=== PATIENT | male | born 1980 | race African-American/Black ===

== ENCOUNTER 2023-10-04 12:31 | Emergency (ER) | payer OTHER ==
[~2023-10-04] VITALS: Ht 172.7 cm; Wt 89.4 kg
[2023-10-04 13:00] LABS: EOSINOPHILS 0.6 % (0-6); HEMATOCRIT 45.3 % (35.0-50.0)
[2023-10-04 13:03] LABS: BASOPHILS 0.8 % (0-2); HEMOGLOBIN 14.6 g/dL (12.0-18.0); LYMPHOCYTES 10.4 % (24-44); MCHC 32.2 g/dl (30-36); NEUTROPHILS 84.2 % (39-80); PLATELET COUNT 271 K/uL (140-440); RBC 5.03 M/ul (4.3-5.7)
[2023-10-04 13:25] LABS: ACETAMINOPHEN 0 ug/mL (10-30); ALBUMIN 3.9 g/dL (3.4-5.0); ALBUMIN/GLOBULIN RATIO 1.15 (1.1-2.4); ALCOHOL, MEDICAL <3 ng/dL (<3); ALKALINE PHOSPHATASE 93 U/L (46-116); ALT (SGPT) 18 U/L (14-59); ANION GAP 13.8 (7-21); AST (SGOT) 17 U/L (15-37); BILIRUBIN, TOTAL 0.6 ng/dL (0.2-1.0); BUN/CREATININE RATIO 12.33 (6.0-28.6); CALCIUM 9.1 mg/dL (8.5-10.1); CARBON DIOXIDE 27 mmol/L (21-32); CHLORIDE 104 mmol/L (98-107); CREATININE, SERUM 1.54 mg/dL (0.70-1.30); GLOMERULAR FILTRATION RATE,EST 56 mL/min (>60); POTASSIUM 3.8 mmol/L (3.5-5.1); PROTEIN, TOTAL 7.3 g/dL (6.4-8.2); SALICYLATE 4.4 mg/dL (2.8-20.0); TSH, 3RD GENERATION 0.951 uIU/mL (0.358-3.740); UREA NITROGEN 19 mg/dL (7-18)
[2023-10-04 13:45] VITALS: BP 146/111
[2023-11-05] MEDS ORDERED: NEURONTIN100 MG PO (06:54)
== END 2023-10-04 13:45 | disposition home or self-care (01) ==
LOC: ED 12:31
PROVIDERS: Emergency Medicine
DX: Z00.8 Encounter for other general examination (principal)
CPT/HCPCS: 36415; 80053; 80307; 84443; 85025; 99285; G0480

== ENCOUNTER 2024-05-14 13:20 | Observation (INO) | payer OTHER ==
[~2024-05-14] VITALS: Ht 172.7 cm; Wt 88.0 kg
[~2024-05-14 13:20] MED LIST: NEURONTIN100 MG PO
--- OUTSIDE RECORDS SUMMARY | 2024-05-14 13:28 | XMS ---
PreManage Notification: ONUR KAPLAN Security Physician Support Coordinator Events No recent Security Events currently on file CRITERIA MET - [facility] - 2 Visits in 30 Days CARE PROVIDERS MAHIN WILHELM Physician Recreation Program Coordinator Current PHONE: [phone] [facility] Current PHONE: Unknown [facility]/Center: [facility] Qualified [facility] Current WORKERS CLINIC [facility] ([facility]) <UNAVAIL> PHONE: [phone] Ernie has no Care Guidelines for this patient. E.D. VISIT COUNT (12 [address] 6 [facility] [address] [facility] TOTAL 9 NOTE: Visits indicate total known visits. ED/UCC VISIT TRACKING (12 MO.) 05/14/2024 13:21 [facility] [place] [facility] [place] TYPE: Emergency COMPLAINT: - SWALLOWED FOREIGN OBJECT 04/24/2024 05:01 [facility] [place] TYPE: Emergency DIAGNOSES: - Other psychoactive substance abuse, uncomplicated - Suicidal ideations - mental health eval 04/22/2024 21:[address] [facility] [place] TYPE: Emergency DIAGNOSES: - Other psychoactive substance abuse, uncomplicated - Suicidal ideations - MENTAL HEALTH EVAL 04/13/2024 19:58 [facility] [place] TYPE: Emergency DIAGNOSES: - Calculus in bladder - URINATING BLOOD 03/05/2024 01:40 [facility] [place] TYPE: Emergency DIAGNOSES: - Calculus of ureter - kidney stones 11/05/2023 05:56 [facility] [place] TYPE: Emergency COMPLAINT: - NUMBNESS DIAGNOSES: - Anesthesia of skin - Carpal tunnel syndrome, bilateral upper limbs 10/04/2023 16:17 [facility] [place] TYPE: Emergency DIAGNOSES: - Suicidal ideations - CCS 10/04/2023 12:31 [facility] [place] TYPE: Emergency COMPLAINT: - MEDICAL CLEARANCE DIAGNOSES: - Encounter for other general examination - Suicidal ideations 06/22/2023 05:17 [facility] [place] TYPE: Emergency DIAGNOSES: - Contusion of left shoulder, initial encounter - Pain in left shoulder - Pain in right shoulder - BILATERAL SHOULDER PAIN INPATIENT VISIT TRACKING (12 MO.) No inpatient visits to display in this time frame [email or web address]
[2024-05-14] MEDS ORDERED: SUCCINYLCHOLINE IN 0.9% NACL 200 MG/10 ML SYRINGE ONE (14:53)
[2024-05-14] MEDS ORDERED: ETOMIDATE 40 MG/20 ML VIAL ONE (14:57)
[2024-05-14] MEDS ORDERED: SEVOFLURANE 250 ML BTL ONE (14:58)
[2024-05-14] MEDS ORDERED: METOPROLOL TARTRATE 5 MG/5 ML VIAL ONE (15:17)
[2024-05-14] MEDS ORDERED: LACTATED RINGER'S 1,000 ML IV ONE (15:19)
--- NOTE | 2024-05-14 15:41 | NUR ---
05/14/24 1541 Sheets,Maritza 1534 PT ARRIVED TO PACU ON 8L VIA MASK, ORAL AIRWAY IN PLACE AND RESP EVEN AND UNLABORED. PT NONAROUSABLE TO TACTILE STIMULI.
[2024-05-14] MEDS ORDERED: droPERidol 5 MG/2 ML VIAL IV PRN (15:45)
[2024-05-14] MEDS ORDERED: ondansetron HCL 4 MG/2 ML VIAL IV PRN (15:45)
[2024-05-14] MEDS ORDERED: METOCLOPRAMIDE HCL 10 MG/2 ML SDV IV PRN (15:45)
[2024-05-14] MEDS ORDERED: MEPERIDINE HCL 25 MG/1 ML VIAL IV PRN (15:45)
[2024-05-14] MEDS ORDERED: LORazepam 2 MG/ML VIAL IV PRN (15:45)
[2024-05-14] MEDS ORDERED: PROCHLORPERAZINE EDISYLATE 10 MG/2 ML VIAL IV PRN (15:45)
[2024-05-14] MEDS ORDERED: MIDAZOLAM HCL 2 MG/2 ML VIAL IV PRN (15:45)
[2024-05-14] MEDS ORDERED: diphenhydrAMINE HCL 50 MG/ML VIAL IV PRN (15:45)
[2024-05-14] MEDS ORDERED: KETOROLAC TROMETHAMINE 30 MG/ML VIAL IV PRN (15:45)
[2024-05-14] MEDS ORDERED: IBLOOD GLUCOSE TEST STRIP 1 EA TEST VI PRN (15:45)
[2024-05-14] MEDS ORDERED: NALOXONE HCL 0.4 MG SYR IV PRN (15:45)
[2024-05-14] MEDS ORDERED: MORPHINE SULFATE 10 MG/ML VIAL IV PRN (15:45)
[2024-05-14] MEDS ORDERED: fentaNYL citrate 50 MCG/ML SDV IV PRN (15:45)
[2024-05-14 16:06] VITALS: BP 149/94
[2024-05-14] MEDS ORDERED: ondansetron HCL 4 MG/2 ML VIAL ONE (16:09)
[2024-05-14] MEDS ORDERED: KETOROLAC TROMETHAMINE 30 MG/ML VIAL ONE (16:09)
[2024-05-14] MEDS ORDERED: DEXAMETHASONE SOD PHOS 4 MG/ML VIAL ONE (16:09)
--- NOTE | 2024-05-14 16:14 | NUR ---
PT TO ROOM 3 FROM PACU. RECEIVED REPORT FROM JUAN HEMPHILL. PT IS DROWSY. OPENS EYES AND ANSWERES QUESTIONS. DENIES PAIN. PROVIDED PT WITH JUICE AND JELLO. NO OTHER NEEDS AT THIS TIME. OFFICER AT BEDSIDE. CALL LIGHT WITHIN REACH.
[2024-05-14 16:53] VITALS: BP 143/98
--- NOTE | 2024-05-14 16:53 | NUR ---
BRITTANIE 165-PT LAYING IN BED WITH EYES CLOSED. PT OPENS EYES AND ANSWERES QUESTIONS. RESP EVEN AND UNLABORED. PT STATES "HAVING CHEST PAIN SINCE I WOKE UP", STATES "CAN'T GET A FULL BREATH". PT STATES "I WANT TO LEAVE" ADVISED PT WITH THESE SYMPTOMS SHOULD BE SEEN IN THE ER. PT STARTS TO GET TEARY. PT THEN STATES HE WOULD LIKE TO GO TO THE ER. BRITTANIE 170-PHONE CALL TO PASTEURIZER HELPER WITH UPDATED INFORMATION ON PT. PT WILL GO TO ER ROOM 4. BRITTANIE 170-THIS RN TRANSFERED PT ON STRETCHER TO ER ROOM 4. [place] SUPEREVISOR IN ROOM WHEN PT ARRIVED TO RESUME CARE.
--- NOTE | 2024-05-15 10:33 | OR ---
[facility] [address] [place], [place] [address] Signed DATE OF OPERATION: 05/14/2024 SURGEON: Rajendra Cotto MD PREOPERATIVE DIAGNOSIS: Ingested foreign body (AAA size cell phone battery in the stomach). POSTOPERATIVE DIAGNOSIS: Ingested foreign body (AAA size cell phone battery in the stomach). PROCEDURE: Removal of gastric foreign body with endoscopic snare tattoo technique. ANESTHESIA: General endotracheal; Rajendra Thompson CRNA. INDICATION: This 44-year-old black man is in the custody of [facility]. He ingested a battery at approximately 11:00 a.m. today. The battery was absconded from a portable phone in the halfway. He presented to the emergency room with some complaints of epigastric pain. An abdominal x-ray shows a battery probably between AAA and AA battery size. He is admitted at this time to undergo extraction of the foreign body given it is a battery and has potential for erosion, ulceration, and other complications. He understands the risk of bleeding, infection, and perforation related to upper endoscopy and foreign body removal and wished to proceed. FINDINGS: Indeed the battery was in the antrum of the stomach. It was rather slippery, but ultimately was grasped and extracted with a snare device causing no injury to surrounding tissue. The examined mucosa of the stomach did show some erosive changes likely related to the galvanic ability of the battery in an electrolyte rich environment. Followup upper endoscopy showed no sign of injury related to extraction of the foreign body. DESCRIPTION OF PROCEDURE: The patient was brought to the endoscopy suite, given a general endotracheal anesthetic. A bite block was placed. An Olympus video upper endoscope was passed in the hypopharynx and into the proximal esophagus. The esophagus itself appeared normal. There was no sign of distal stricture. The stomach was insufflated with air. Rugal Electronically Signed By: RAJENDRA COTTO MD 05/15/24 1033 PATIENT NAME: ONUR KAPLAN OPERATIVE REPORT DATE OF : 76 REPORT #: [id number] PHYSICIAN: RAJENDRA COTTO MD PCP: NO PRIMARY CARE PHYSICIAN REPORT IS CONFIDENTIAL AND NOT TO BE RELEASED WITHOUT AUTHORIZATION [facility] [address] [place], [place] [address] Signed folds were normal. The mucoid material from his meal at approximately 11 was noted. With various manipulations, the battery could be identified. It was manipulated into position and a snare used to grasp the end of it far enough from the end that it would not slip, but not so far that it would be hard to extract. Once snared, it was gently withdrawn through the GE junction, ultimately out of the mouth. Photograph was taken. The scope was reintroduced. Examination throughout showed no sign of injury related to extraction, but did confirm erosive changes of the stomach, likely related to the battery itself. The scope was removed and the patient was taken to the recovery room in good condition. CONCLUDING DIAGNOSIS: Successful extraction of foreign body of stomach (battery the size of AA battery). PLAN: Avoidance of ingestion of foreign bodies would be paramount of course. He is free to eat regular food at this point. MD ROSA Artis/TAZ /[id number] cc: [facility] Abdifatah Haley MD Copies: ABDIFATAH HALEY MD ~ Electronically Signed By: RAJENDRA COTTO MD 05/15/24 1033 PATIENT NAME: ONUR KAPLAN OPERATIVE REPORT DATE OF : 76 REPORT #: [id number] PHYSICIAN: RAJENDRA COTTO MD PCP: NO PRIMARY CARE PHYSICIAN REPORT IS CONFIDENTIAL AND NOT TO BE RELEASED WITHOUT AUTHORIZATION
--- NOTE | 2024-05-15 10:33 | HP ---
[facility] [address] [place], [place] [address] Signed ADMISSION DATE: 05/14/2024 EMERGENCY ROOM CONSULTATION ADMISSION NOTE PREOPERATIVE DIAGNOSIS: Ingested foreign body (stomach) AA battery. HISTORY OF PRESENT ILLNESS: This 44-year-old black man is in the custody of the [facility]'s Department and is manacled and secured. Approximately 11:00 a.m. today, he swallowed a single battery. He additionally had a small amount of food during the course of his meal at that time. He was taken to the emergency room, where he was evaluated thoroughly by Dr. Haley. A plain abdominal x-ray shows a battery in the midportion of the stomach. The battery is thought to be "live." He does have some epigastric pain he says. He denies any prior ingestion of foreign body and denies any ongoing medical problems, specifically no peptic ulceration or other issues. He does say that he has undergone upper endoscopy in the past in the [facility]. SOCIAL HISTORY: He is incarcerated for reasons that are uncertain and under the custody of the [facility]. REVIEW OF SYSTEMS: He denies any shortness of breath or chest pain. He is having no dysphagia or hematemesis. He has epigastric pain to some degree. PHYSICAL EXAMINATION: GENERAL: This is a vigorously healthy appearing black man, who does not appear to be in distress. He is secured with leg irons and handcuffs. HEENT: Trachea is midline. CHEST: Normal respiratory excursion. HEART: Pulses regular. ABDOMEN: Nondistended, but soft. There is no focal tenderness. EXTREMITIES: No clubbing, cyanosis, or edema. ASSESSMENT: The patient has ingested a battery. It is still in the stomach and he does have symptoms from it. Although, there may be adequates of watchful waiting and serial examinations including KUB and so forth under the circumstances of extraction under direct visualization with endoscopy would be the safest approach. The Galvanic response Electronically Signed By: RAJENDRA COTTO MD 05/15/24 1033 PATIENT NAME: ONUR KAPLAN HISTORY AND PHYSICAL DATE OF : 76 REPORT #: [id number] PHYSICIAN: RAJENDRA COTTO MD PCP: NO PRIMARY CARE PHYSICIAN REPORT IS CONFIDENTIAL AND NOT TO BE RELEASED WITHOUT AUTHORIZATION [facility] [address] [place], [place] [address] Signed from the battery in the face of gastric acid can lead to erosions and worse including perforation. I have reviewed with the patient the risk of upper endoscopy including, but not limited to bleeding, infection, and perforation. He understands and wished to proceed. We will plan to do this promptly. MD ROSA Artis/TAZ /[id number] cc: Abdifatah Haley MD Medical Personnel, [facility] Copies: ABDIFATAH HALEY MD ~ Electronically Signed By: RAJENDRA COTTO MD 05/15/24 1033 PATIENT NAME: ONUR KAPLAN HISTORY AND PHYSICAL DATE OF : 76 REPORT #: [id number] PHYSICIAN: RAJENDRA COTTO MD PCP: NO PRIMARY CARE PHYSICIAN REPORT IS CONFIDENTIAL AND NOT TO BE RELEASED WITHOUT AUTHORIZATION
== END 2024-05-14 17:00 | disposition still patient (30) ==
LOC: ED 13:20 → MS 15:11
PROVIDERS: ADMIT Surgery; ATTEND Surgery
PROC: 0DC68ZZ Extirpation of Matter from Stomach, Via Natural or Artificial Opening Endoscopic (ICD-10-PCS; principal; 2024-05-14 14:46)
DX: T18.2XXA Foreign body in stomach, initial encounter (principal); W44.A9XA Other batteries entering into or through a natural orifice, initial encounter; K31.89 Other diseases of stomach and duodenum
CPT/HCPCS: 00731; 74018; 99284; G0378; J0330; J1100; J1885; J2405; J7121

== ENCOUNTER 2024-05-14 17:04 | Emergency (ER) | payer OTHER ==
--- NOTE | ~2024-05-14 | EKG ---
[facility] [address] [place], [place] [address] Draft EK completed, results pending confirmation PATIENT NAME: ONUR KAPLAN DANNY Electrocardiogram DATE OF : 76 PHYSICIAN: PRELIMINARY REPORT #: [id number] REPORT IS CONFIDENTIAL AND NOT TO BE RELEASED WITHOUT AUTHORIZATION
--- OUTSIDE RECORDS SUMMARY | 2024-05-14 17:11 | XMS ---
PreManage Notification: ONUR KAPLAN Security Resolution Manager Events No recent Security Events currently on file CRITERIA MET - 6 ED Visits in 6 Months - [facility] - 2 Visits in 30 Days CARE PROVIDERS MAHIN WILHELM Physician Personal Lines Sales Executive Current PHONE: [phone] ABBEY [facility] Current PHONE: Unknown [facility]/Center: [facility] Current WORKERS CLINIC \[facility] ([facility]) <UNAVAIL> PHONE: [phone] Ernie has no Care Guidelines for this patient. E.D. VISIT COUNT (12 MO.) 6 [facility] 4 [facility] [place] Viviane TOTAL 10 NOTE: Visits indicate total known visits. ED/UCC VISIT TRACKING (12 MO.) 05/14/2024 17:05 [facility] [place] TYPE: Emergency COMPLAINT: - CHEST PAIN 05/14/2024 13:21 [facility] [place] TYPE: Emergency COMPLAINT: - SWALLOWED FOREIGN OBJECT 04/24/2024 05:01 [facility] [facility] [place] TYPE: Emergency DIAGNOSES: - Other psychoactive substance abuse, uncomplicated - Suicidal ideations - mental health eval 04/22/2024 21:18 [facility] [place] TYPE: Emergency DIAGNOSES: - Other psychoactive substance abuse, uncomplicated - Suicidal ideations - MENTAL HEALTH EVAL 04/13/2024 19:58 [facility] [place] TYPE: Emergency DIAGNOSES: - Calculus in bladder - URINATING BLOOD 03/05/2024 01:40 [facility] [place] TYPE: Emergency DIAGNOSES: - Calculus of ureter - kidney stones 11/05/2023 05:56 [facility] [place] TYPE: Emergency COMPLAINT: - NUMBNESS DIAGNOSES: - Anesthesia of skin - Carpal tunnel syndrome, bilateral upper limbs 10/04/2023 16:17 [facility] [place] TYPE: Emergency DIAGNOSES: - Suicidal ideations - CCS 10/04/2023 12:31 [facility] [place] TYPE: Emergency COMPLAINT: - MEDICAL CLEARANCE DIAGNOSES: - Encounter for other general examination - Suicidal ideations 06/22/2023 05:17 [facility] [place] TYPE: Emergency DIAGNOSES: - Contusion of left shoulder, initial encounter - Pain in left shoulder - Pain in right shoulder - BILATERAL SHOULDER PAIN INPATIENT VISIT TRACKING (12 MO.) 05/14/2024 15:11 [facility] [place] TYPE: Observation COMPLAINT: - INGESTED BATTERY [id number]
[2024-05-14] MEDS ORDERED: NITROGLYCERIN 0.4 MG SUBL SL PRN (17:15)
[2024-05-14] MEDS ORDERED: ASPIRIN 81 MG CHEW PO ONE (17:15)
[2024-05-14 17:24] LABS: BASOPHILS 0.4 % (0-2); EOSINOPHILS 0.8 % (0-6); HEMATOCRIT 43.6 % (35.0-50.0); HEMOGLOBIN 14.5 g/dL (12.0-18.0); LYMPHOCYTES 9.5 % (24-44); MCH 29.3 (27-36); MCHC 33.3 g/dl (30-36); MCV 87.9 fl (81-99); MONOCYTES 3.8 % (0-12); NEUTROPHILS 85.5 % (39-80); PLATELET COUNT 275 K/uL (140-440); RBC 4.96 M/ul (4.3-5.7); RDW 12.9 (10.5-15.0)
[2024-05-14 17:41] LABS: ALBUMIN 3.3 g/dL (3.4-5.0); ANION GAP 13.4 (7-21); BILIRUBIN, TOTAL 0.7 mg/dL (0.2-1.0); BUN/CREATININE RATIO 10.34 (6.0-28.6); CALCIUM 8.6 mg/dL (8.5-10.1); CREATININE, SERUM 1.16 mg/dL (0.70-1.30); MAGNESIUM 1.7 mg/dL (1.8-2.4); POTASSIUM 3.4 mmol/L (3.5-5.1); PROTEIN, TOTAL 6.6 g/dL (6.4-8.2)
[2024-05-14] MEDS ORDERED: INHALER, ASSIST DEVICES 1 EACH SPACER MISC ONE (18:15)
[2024-05-14] MEDS ORDERED: ALBUTEROL SULFATE 8 GM HOME.PACK INH ONE (18:15)
[2024-05-14 19:28] VITALS: BP 139/105
== END 2024-05-14 19:28 | disposition home or self-care (01) ==
LOC: ED 17:04
PROVIDERS: Emergency Medicine
DX: R07.9 Chest pain, unspecified (principal)
CPT/HCPCS: 36415; 71045; 80053; 83735; 84484; 85025; 93005; 93010; 94664; 99285-25; A9270